=== PATIENT | female | born 1990 | race Caucasian/White ===

== ENCOUNTER 2016-06-21 19:39 | Emergency (ER) | payer SELFPAY ==
[~2016-06-21] VITALS: Ht 157.5 cm; Wt 75.0 kg
[~2016-06-21 19:39] MED LIST: GUAI100S6 PO; SULF-154 PO; Z.0.BCPILL PO; ZITH250T PO
[2016-06-21] MEDS ORDERED: VENL75TA PO (19:59)
[2016-06-21 20:01] VITALS: BP 116/74; PULSE 93; RESP 18; TEMP 99; O2SAT 98
--- NOTE | 2016-06-21 20:23 | PD ---
HPI Chief Complaint: GI Complaint Time Seen by Provider: 20:22 Travel History International Travel<30 days: No Contact w/Intl Traveler<30days: No Traveled to known affect area: No History of Present Illness HPI Patient is a 26 year old female who presents emergency for evaluation of nasal congestion, chills, nausea with vomiting, diarrhea. She states her symptoms started 4 days ago, she has not vomited since this morning. She has not had any documented fevers. She reports loose stools but no explosive diarrhea. Patient states that she is residing at the [facility] and he made her come to the emergency department to be evaluated. [facility] Past Medical History Autoimmune Disease: Yes (LUPUS) Anxiety: Yes Depression: Yes High Cholesterol: Yes Diminished Hearing: No Hepatitis: Yes (C) Immunizations Current: Yes Migraines: Yes Influenza Vaccination: No ?: Not LMP: LAST WEEK Social History Alcohol Use: No Tobacco Use: Yes (1/2 - 1 pack day) Substance Use: Yes (dilaudid iv) Allergies-Medications (Allergen,Severity, Reaction): Coded Allergies: Pertussis Vaccine (Verified Allergy, Unknown, 06/21/16) Reported Meds & Prescriptions Reported Meds & Active Scripts Active Reported Effexor (Venlafaxine HCl) 75 Mg Tab 75 Mg PO DAILY Review of Systems Except as stated in HPI: all other systems reviewed are Neg General / Constitutional: No: Fever, Chills HENT: Positive: Congestion, No: Headaches, Lightheadedness Cardiovascular: No: Chest Pain or Discomfort Respiratory: No: Shortness of Breath Gastrointestinal: Positive: Nausea, Vomiting, Diarrhea, No: Abdominal Pain Neurologic: No: Weakness, Dizziness Physical Exam Narrative GENERAL: Well-developed, well-nourished, alert female. Resting comfortably in no acute distress. SKIN: Warm and dry. HEAD: Atraumatic. Normocephalic. EYES: Pupils equal and round. No scleral icterus. No injection or drainage. ENT: No nasal bleeding or discharge. Mucous membranes pink and moist. NECK: Trachea midline. No JVD. CARDIOVASCULAR: Regular rate and rhythm. No murmur appreciated. RESPIRATORY: No accessory muscle use. Clear to auscultation. Breath sounds equal bilaterally. GASTROINTESTINAL: Abdomen soft, non-tender, nondistended. Hepatic and splenic margins not palpable. MUSCULOSKELETAL: No obvious deformities. No clubbing. No cyanosis. No edema. NEUROLOGICAL: Awake and alert. No obvious cranial nerve deficits. Motor grossly within normal limits. Normal speech. PSYCHIATRIC: Appropriate mood and affect; insight and judgment normal. Data Data Last Documented VS Vital Signs Date Time Temp Pulse Resp B/P Pulse Ox O2 Delivery O2 Flow Rate FiO2 06/21/16 20:01 99.0 93 18 116/74 98 Orders Ondansetron Odt (Zofran Odt) (06/21/16 20:30) Ed Urine Pregnancytest Poc (06/21/16 20:48) MDM Medical Decision Making Medical Screen Exam Complete: Yes Emergency Medical Condition: Yes Interpretation(s) Vital Signs Date Time Temp Pulse Resp B/P Pulse Ox O2 Delivery O2 Flow Rate FiO2 06/21/16 20:01 99.0 93 18 116/74 98 Differential Diagnosis Gastritis versus gastroenteritis versus viral syndrome versus other Narrative Course Patient is a 26 year old female who presents emergency with 4 days of nausea, vomiting, diarrhea, nasal congestion. Patient reports that she has not vomited since this morning, she has been taking sips of drinks but hasn't eaten anything significant. Patient appears well, her vital signs are stable, she is alert and oriented. She is nontoxic appearing. Patient will be given Zofran orally and then will be given a oral fluid challenge. Patient tolerated oral fluid challenge. Patient will be discharged home, symptoms are likely related to viral illness. Patient herself stated that she's felt better today than she did previously. She is encouraged to maintain adequate fluid intake, bland low- residue diet. She is encouraged to follow-up with her primary doctor return to emergency department for any new or worsening symptoms. Patient verbalized understanding of these instructions. Patient is stable for discharge. Urine test is negative Diagnosis Primary Impression: Viral syndrome Referrals: Primary Care Physician Patient Instructions: General Instructions, Viral Syndrome (DC) Additional Instructions: Maintain adequate fluid intake [place], low-residue diet Take medications as directed Follow-up with your primary doctor Return to emergency department for any new or worsening symptoms Med/Other Pt SpecificInfo: Prescription(s) given Scripts Ondansetron (Zofran)4 Mg Tab4 Mg PO Q6HR PRN (NAUSEA OR VOMITING) 3 Days Ref 0 Prov:Tere Cifuentes 06/21/16 Disposition: 01 DISCHARGE HOME Condition: Stable Tere Cifuentes Jun 21, 2016 20:23
[2016-06-21] MEDS ORDERED: ONDANSETRON ODT 4 MG TAB PO ONE (20:30)
[2016-06-21] MEDS ORDERED: ZOFR4TAB PO (21:25)
== END 2016-06-21 21:43 | disposition home or self-care (01) ==
LOC: NEDAMB 19:39
DX: B34.9 Viral infection, unspecified (principal)
CPT/HCPCS: 84703; 99284

== ENCOUNTER 2016-07-16 21:01 | Emergency (ER) | payer SELFPAY ==
[~2016-07-16] VITALS: Ht 156.2 cm; Wt 76.0 kg
[~2016-07-16 21:01] MED LIST changes: -GUAI100S6 PO; -SULF-154 PO; +VENL75TA PO; -Z.0.BCPILL PO; -ZITH250T PO; +ZOFR4TAB PO
[2016-07-16 21:03] VITALS: BP 117/74; PULSE 99; RESP 18; TEMP 98.9; O2SAT 97
--- NOTE | 2016-07-16 23:51 | PD ---
HPI Chief Complaint: [employer] Problem/Complaint Time Seen by Provider: 23:44 Travel History International Travel<30 days: No Contact w/Intl Traveler<30days: No Traveled to known affect area: No History of Present Illness HPI 26-year-old female here with complaint of vaginal bleeding. Patient is currently in rehabilitation. States that her last menstrual period was approximate 5-6 weeks ago and she has not been bleeding heavily for the last 24 hours with clot. She is unsure whether she is having a miscarriage as she has had unprotected sex, or if this is just a heavy late menstrual period. She does have history of irregular menses, heavy bleeding. She has not taken any test because she is currently in rehabilitation and they will not let her leave. PFSH Past Medical History Autoimmune Disease: Yes (LUPUS, RA, NANETTE ESTRELLA) Anxiety: Yes Depression: Yes High Cholesterol: Yes Diminished Hearing: No Hepatitis: Yes (C) Immunizations Current: Yes Migraines: Yes ?: Unknown Social History Alcohol Use: No Tobacco Use: Yes (1/2 - 1 pack day) Substance Use: Yes (dilaudid iv) Allergies-Medications (Allergen,Severity, Reaction): Coded Allergies: Pertussis Vaccine (Verified Allergy, Unknown, 07/16/16) Reported Meds & Prescriptions Reported Meds & Active Scripts Active Review of Systems Except as stated in HPI: all other systems reviewed are Neg Physical Exam Narrative GENERAL: Well-appearing female in no acute distress SKIN: Warm and dry. HEAD: Normocephalic. EYES: No scleral icterus. No injection or drainage. ENT: Mucous membranes pink and moist. NECK: Supple CARDIOVASCULAR: Regular rate and rhythm. RESPIRATORY: No accessory muscle use. GASTROINTESTINAL: Abdomen soft, non-tender, nondistended Genitourinary: Declines pelvic exam NEUROLOGICAL: Awake and alert. Normal speech. PSYCHIATRIC: Appropriate mood and affect; insight and judgment normal. Data Data Last Documented VS Vital Signs Date Time Temp Pulse Resp B/P Pulse Ox O2 Delivery O2 Flow Rate FiO2 07/16/16 21:03 98.9 99 18 117/74 97 Orders Ed Urine Pregnancytest Poc (07/16/16 23:15) [facility] Medical Decision Making Medical Screen Exam Complete: Yes Emergency Medical Condition: Yes Medical Record Reviewed: Yes Differential Diagnosis 26-year-old female here with complaint of heavy vaginal bleeding. Differential includes , ectopic , dysmenorrhea, menorrhagia. Narrative Course Urine test was negative. Patient declines pelvic examination. States that she is due to follow up with her [facility]ISAL SPECIALIST anyways. Her main concern was and because she is currently in rehabilitation she was unable to take a test, prompting her ER visit. Diagnosis Primary Impression: Menorrhagia with irregular cycle Referrals: President & Founder call for appointment Additional Instructions: Follow-up with APPRAISAL SPECIALIST as discussed. Med/Other Pt SpecificInfo: No Change to Meds Disposition: 01 DISCHARGE HOME Condition: Stable Tamra Griggs MD Jul 16, 2016 23:51
== END 2016-07-17 00:18 | disposition home or self-care (01) ==
LOC: NEPE 21:01
DX: N92.1 Excessive and frequent menstruation with irregular cycle (principal)
CPT/HCPCS: 84703; 99283